=== PATIENT | female | born 1935 | race Native Hawaiian/Other Pacific Islander ===

== ENCOUNTER 2020-10-31 10:57 | Outpatient (CLI) | payer OTHER | END 2020-10-31 22:01 | disposition home or self-care (01) | LOC: INF 10:57 | PROVIDERS: ATTEND Internal Medicine | DX: Z23 Encounter for immunization (principal) | CPT/HCPCS: 96372 ==

== ENCOUNTER 2020-11-22 10:25 | Outpatient (CLI) | payer OTHER | END 2020-11-22 21:11 | disposition home or self-care (01) | LOC: INF | PROVIDERS: ATTEND Internal Medicine | DX: Z23 Encounter for immunization (principal) | CPT/HCPCS: 96372 ==